=== PATIENT | male | born 1970 | race Caucasian/White ===

== ENCOUNTER 2020-06-24 11:55 | Emergency (ER) | payer SELFPAY ==
[~2020-06-24] VITALS: Ht 177.8 cm; Wt 81.6 kg
[~2020-06-24 11:55] MED LIST: AMBIEN5 MG PO; AUGMENTIN 875 M1 TAB PO; BACTROBAN OINT22 GM PO; CLARITIN10 MG PO; HYDROCODONE BIT1 T11 PO; KEFLEX500 MG PO; LOTRISONE 0.05%1 CRE TP; MEDROL DOSEPAK4 MG PO; NKHM; NORCO 325 MG-51 TAB PO; PHENERGAN25 M1 PO; PREDNICOT20 MG PO; PREDNISONE10 MG PO; PROTONIX40 MG PO; THYROID; TOBRADEX 0.1%-0.5 ML OPH; VICODIN ES 7501 TAB PO
[2020-06-24 12:55] LABS: BASO % 0.7 % (0.0-1.0); EOS # 0.2 10*3/uL (0.0-0.4); HEMATOCRIT 43.9 % (42.0-52.0); LYMPH # 1.6 10*3/uL (1.3-4.4); LYMPH % 28.7 % (27.0-41.0); MEAN CORPUSCULAR HGB 31.2 pg (27.0-31.0); MEAN CORPUSCULAR HGB CONC 33.9 g/dl (33.0-37.0); MEAN PLATELET VOLUME 10.6 fl (9.6-12.3); MONO # 0.6 10*3/uL (0.1-1.0); MONO % 10.8 % (3.0-9.0); NEUT % 55.4 % (47.0-73.0); PLATELET COUNT AUTOMATED 198 10*3/uL (130-400); RED BLOOD COUNT 4.77 10*6/uL (4.50-5.90); RED CELL DISTRI WIDTH 11.6 % (0-14.5); WHITE BLOOD COUNT 5.5 10*3/uL (4.8-10.8)
[2020-06-24 13:12] LABS: ALBUMIN 3.7 gm/dl (3.1-4.5); ALKALINE PHOSPHATASE 67 U/L (45-117); BUN 15 mg/dl (7-24); CHLORIDE 108 mmol/L (98-107); CREATININE 1.01 mg/dL (0.70-1.30); POTASSIUM 3.9 mmol/L (3.5-5.1); SGOT/AST 24 IU/L (3-35); SGPT/ALT 43 U/L (12-78); SODIUM 140 mmol/L (136-145); TOTAL PROTEIN 7.6 gm/dL (6.4-8.2)
[2020-06-24 13:35] LABS: BILIRUBIN NEGATIVE (NEGATIVE); BLOOD NEGATIVE (NEGATIVE); CLARITY CLEAR (CLEAR); COLOR YELLOW (YELLOW); GLUCOSE NEGATIVE (NEGATIVE); KETONE NEGATIVE (NEGATIVE); SPECIFIC GRAVITY 1.025 (1.005-1.030)
[2020-06-24 13:36] LABS: LEUKO ESTERASE NEGATIVE (NEGATIVE); NITRITE NEGATIVE (NEGATIVE); UROBILINOGEN 0.2 E.U./dl (0.2-1.0)
[2020-06-24 13:39] LABS: BACTERIA TRACE; MUCOUS TRACE; WBC 0-2 wbc/hpf (0-5)
== END 2020-06-24 15:41 | disposition home or self-care (01) ==
LOC: ED 11:55
PROVIDERS: Internal Medicine
DX: R10.31 Right lower quadrant pain (principal); R10.32 Left lower quadrant pain; E03.9 Hypothyroidism, unspecified; Z90.49 Acquired absence of other specified parts of digestive tract

== ENCOUNTER 2021-03-17 06:16 | Emergency (ER) | payer SELFPAY ==
[~2021-03-17] VITALS: Ht 177.8 cm; Wt 81.6 kg
[2021-03-17 07:24] LABS: BASO % 0.3 % (0.0-1.0); EOS # 0.1 10*3/uL (0.0-0.4); EOS % 1.4 % (1.0-4.0); HEMATOCRIT 40.6 % (42.0-52.0); LYMPH # 1.7 10*3/uL (1.3-4.4); LYMPH % 18.3 % (27.0-41.0); MEAN CELL VOLUME 92.5 fl (80.0-94.0); MEAN CORPUSCULAR HGB 31.4 pg (27.0-31.0); MEAN PLATELET VOLUME 10.7 fl (9.6-12.3); MONO # 1.1 10*3/uL (0.1-1.0); NEUT # 6.1 10*3/uL (2.3-7.9); NEUT % 67.8 % (47.0-73.0); PLATELET COUNT AUTOMATED 184 10*3/uL (130-400); RED BLOOD COUNT 4.39 10*6/uL (4.50-5.90); RED CELL DISTRI WIDTH 11.5 % (0-14.5)
[2021-03-17 07:40] LABS: ALBUMIN 3.4 gm/dl (3.1-4.5); ALKALINE PHOSPHATASE 65 U/L (45-117); BUN 18 mg/dl (7-24); CHLORIDE 108 mmol/L (98-107); CREATININE 1.01 mg/dL (0.70-1.30); POTASSIUM 3.6 mmol/L (3.5-5.1); SGOT/AST 15 IU/L (3-35); SGPT/ALT 34 U/L (12-78); SODIUM 139 mmol/L (136-145); TOTAL PROTEIN 7.4 gm/dL (6.4-8.2)
[2021-03-17 08:04] LABS: BILIRUBIN Negative (Negative); BLOOD Negative (Negative); CLARITY Clear (Clear); COLOR Yellow (Yellow); GLUCOSE Negative (Negative); KETONE Negative (Negative); LEUKO ESTERASE Negative (Negative); NITRITE Negative (Negative); PH 5.5 (4.5-8.0); SPECIFIC GRAVITY 1.015 (1.001-1.030); UROBILINOGEN 0.2 E.U./dl (0.0-1.0)
[2021-03-17 08:11] LABS: EPITHELIAL CELLS 0-2
[2021-03-17 08:12] LABS: MUCOUS TRACE
[2021-03-17] MEDS ORDERED: Motrin,Rufen800 MG PO (08:23)
[2021-03-17] MEDS ORDERED: CIPRO500 MG PO (08:23)
[2021-03-17] MEDS ORDERED: FLAGYL500 MG PO (08:23)
== END 2021-03-17 09:00 | disposition home or self-care (01) ==
LOC: ED 06:16
PROVIDERS: Emergency Medicine
DX: K57.32 Diverticulitis of large intestine without perforation or abscess without bleeding (principal); R10.32 Left lower quadrant pain

== ENCOUNTER 2021-03-19 20:09 | Emergency (ER) | payer SELFPAY ==
[~2021-03-19 20:09] MED LIST changes: +CIPRO500 MG PO; +FLAGYL500 MG PO; +Motrin,Rufen800 MG PO
== END 2021-03-19 22:00 | disposition left against medical advice (07) ==
LOC: ED 20:09
DX: R10.9 Unspecified abdominal pain (principal); Z53.21 Procedure and treatment not carried out due to patient leaving prior to being seen by health care provider

== ENCOUNTER 2021-07-16 11:05 | Emergency (ER) | payer SELFPAY ==
[~2021-07-16] VITALS: Wt 81.6 kg
[2021-07-16] MEDS ORDERED: ZITHROMAX250 MG PO (13:44)
[2021-07-16] MEDS ORDERED: PREDNISONE20 M1 PO (13:44)
[2021-07-16] MEDS ORDERED: PROVENTIL HFA6.7 GM INH (13:44)
== END 2021-07-16 14:22 | disposition home or self-care (01) ==
LOC: ED 11:05
DX: J18.9 Pneumonia, unspecified organism (principal); Z20.822 Contact with and (suspected) exposure to COVID-19

== ENCOUNTER 2021-07-23 00:42 | Emergency (ER) | payer SELFPAY ==
[~2021-07-23] VITALS: Ht 177.8 cm; Wt 81.6 kg
[~2021-07-23 00:42] MED LIST changes: +PREDNISONE20 M1 PO; +PROVENTIL HFA6.7 GM INH; +ZITHROMAX250 MG PO
[2021-07-23 01:54] LABS: BASO % 0.3 % (0.0-1.0); EOS # 0.1 10*3/uL (0.0-0.4); HEMATOCRIT 45.5 % (42.0-52.0); LYMPH # 2.4 10*3/uL (1.3-4.4); LYMPH % 22.6 % (27.0-41.0); MEAN CELL VOLUME 92.7 fl (80.0-94.0); MEAN CORPUSCULAR HGB 31.8 pg (27.0-31.0); MEAN CORPUSCULAR HGB CONC 34.3 g/dl (33.0-37.0); MEAN PLATELET VOLUME 10.3 fl (9.6-12.3); MONO # 0.8 10*3/uL (0.1-1.0); MONO % 7.8 % (3.0-9.0); NEUT # 7.1 10*3/uL (2.3-7.9); NEUT % 67.6 % (47.0-73.0); PLATELET COUNT AUTOMATED 309 10*3/uL (130-400); RED BLOOD COUNT 4.91 10*6/uL (4.50-5.90); RED CELL DISTRI WIDTH 11.9 % (0-14.5); WHITE BLOOD COUNT 10.5 10*3/uL (4.8-10.8)
[2021-07-23] MEDS ORDERED: SEPTDS PO (02:09)
== END 2021-07-23 02:58 | disposition home or self-care (01) ==
LOC: ED 00:42
PROVIDERS: Internal Medicine
DX: L03.116 Cellulitis of left lower limb (principal); Z79.2 Long term (current) use of antibiotics

== ENCOUNTER 2022-02-20 07:26 | Emergency (ER) | payer SELFPAY ==
[~2022-02-20] VITALS: Ht 177.8 cm; Wt 81.6 kg
[~2022-02-20 07:26] MED LIST changes: +SEPTDS PO
[2022-02-20 08:09] LABS: BASO # 0.1 10*3/uL (0.0-0.1); EOS # 0.3 10*3/uL (0.0-0.4); EOS % 4.3 % (1.0-4.0); HEMATOCRIT 44.3 % (42.0-52.0); LYMPH % 32.4 % (27.0-41.0); MEAN CELL VOLUME 92.5 fl (80.0-94.0); MEAN CORPUSCULAR HGB 31.7 pg (27.0-31.0); MEAN CORPUSCULAR HGB CONC 34.3 g/dl (33.0-37.0); MEAN PLATELET VOLUME 10.2 fl (9.6-12.3); MONO # 0.8 10*3/uL (0.1-1.0); MONO % 13.2 % (3.0-9.0); NEUT % 48.9 % (47.0-73.0); PLATELET COUNT AUTOMATED 198 10*3/uL (130-400); RED BLOOD COUNT 4.79 10*6/uL (4.50-5.90); RED CELL DISTRI WIDTH 11.7 % (0-14.5); WHITE BLOOD COUNT 6.1 10*3/uL (4.8-10.8)
[2022-02-20 08:30] LABS: BUN 15 mg/dl (7-24); CHLORIDE 109 mmol/L (98-107); CREATININE 0.81 mg/dL (0.70-1.30); POTASSIUM 4.4 mmol/L (3.5-5.1); SGOT/AST 24 IU/L (3-35); SGPT/ALT 29 U/L (12-78); SODIUM 140 mmol/L (136-145); TOTAL PROTEIN 7.2 gm/dL (6.4-8.2)
[2022-02-20 08:40] LABS: ALKALINE PHOSPHATASE 57 U/L (45-117)
[2022-02-20] MEDS ORDERED: ZITHROMAX250 MG PO (12:57)
== END 2022-02-20 13:28 | disposition home or self-care (01) ==
LOC: ED 07:26
PROVIDERS: Emergency Medicine
DX: S46.811A Strain of other muscles, fascia and tendons at shoulder and upper arm level, right arm, initial encounter (principal); J18.9 Pneumonia, unspecified organism; F17.200 Nicotine dependence, unspecified, uncomplicated; Z90.49 Acquired absence of other specified parts of digestive tract; X58.XXXA Exposure to other specified factors, initial encounter; Y93.89 Activity, other specified; Y92.89 Other specified places as the place of occurrence of the external cause; Y99.8 Other external cause status

== ENCOUNTER → 2022-09-24 | Outpatient (CLI) | payer SELFPAY ==
[2022-09-24 10:08] LABS: BASO % 0.5 % (0.0-1.0); EOS # 0.3 10*3/uL (0.0-0.4); EOS % 4.1 % (1.0-4.0); HEMATOCRIT 46.4 % (42.0-52.0); LYMPH % 31.4 % (27.0-41.0); MEAN CELL VOLUME 95.7 fl (80.0-94.0); MEAN CORPUSCULAR HGB 32.6 pg (27.0-31.0); MEAN CORPUSCULAR HGB CONC 34.1 g/dl (33.0-37.0); MEAN PLATELET VOLUME 11.2 fl (9.6-12.3); MONO # 0.7 10*3/uL (0.1-1.0); MONO % 10.4 % (3.0-9.0); NEUT # 3.4 10*3/uL (2.3-7.9); NEUT % 53.4 % (47.0-73.0); PLATELET COUNT AUTOMATED 198 10*3/uL (130-400); RED BLOOD COUNT 4.85 10*6/uL (4.50-5.90); RED CELL DISTRI WIDTH 11.9 % (0-14.5); WHITE BLOOD COUNT 6.3 10*3/uL (4.8-10.8)
[2022-09-24 10:26] LABS: CHLORIDE 110 mmol/L (98-107); POTASSIUM 4.1 mmol/L (3.5-5.1); SODIUM 142 mmol/L (136-145)
[2022-09-24 11:14] LABS: ALKALINE PHOSPHATASE 65 U/L (45-117); BUN 15 mg/dl (7-24); CHOLESTEROL 190 mg/dL (<200); CREATININE 1.02 mg/dL (0.70-1.30); LDL CHOLESTEROL 118 mg/dL (9-159); SGOT/AST 20 IU/L (3-35); SGPT/ALT 27 U/L (12-78); TOTAL PROTEIN 7.8 gm/dL (6.4-8.2); TRIGLYCERIDES 172 mg/dl (<150)
== END | disposition home or self-care (01) ==
LOC: RESCLI 03:58
PROVIDERS: Student in an Organized Health Care Education/Training Program; ATTEND Internal Medicine
DX: Z23 Encounter for immunization (principal); R91.1 Solitary pulmonary nodule; R91.8 Other nonspecific abnormal finding of lung field; E55.9 Vitamin D deficiency, unspecified; F17.200 Nicotine dependence, unspecified, uncomplicated; Z79.899 Other long term (current) drug therapy

== ENCOUNTER 2023-07-22 16:54 | Emergency (ER) | payer OTHER ==
[~2023-07-22] VITALS: Ht 177.8 cm; Wt 79.4 kg
[2023-07-22 17:22] LABS: BASO % 0.6 % (0.0-1.0); EOS # 0.2 10*3/uL (0.0-0.4); EOS % 2.2 % (1.0-4.0); HEMATOCRIT 43.9 % (42.0-52.0); LYMPH # 2.1 10*3/uL (1.3-4.4); LYMPH % 28.6 % (27.0-41.0); MEAN CELL VOLUME 92.8 fl (80.0-94.0); MEAN CORPUSCULAR HGB 31.5 pg (27.0-31.0); MEAN CORPUSCULAR HGB CONC 33.9 g/dl (33.0-37.0); MEAN PLATELET VOLUME 10.1 fl (9.6-12.3); MONO # 0.8 10*3/uL (0.1-1.0); MONO % 10.3 % (3.0-9.0); NEUT # 4.2 10*3/uL (2.3-7.9); NEUT % 57.9 % (47.0-73.0); PLATELET COUNT AUTOMATED 238 10*3/uL (130-400); RED BLOOD COUNT 4.73 10*6/uL (4.50-5.90); RED CELL DISTRI WIDTH 11.6 % (0-14.5); WHITE BLOOD COUNT 7.3 10*3/uL (4.8-10.8)
[2023-07-22 17:47] LABS: ALKALINE PHOSPHATASE 80 U/L (46-116); BUN 13 mg/dl (9-23); CHLORIDE 110 mmol/L (98-107); POTASSIUM 3.7 mmol/L (3.4-5.1); SGPT/ALT 18 U/L (10-49); TOTAL PROTEIN 7.6 gm/dL (6.0-8.0); URIC ACID 7.2 mg/dL (3.7-9.2)
[2023-07-22] MEDS ORDERED: PREDNISONE50 MG PO (18:56)
== END 2023-07-22 19:55 | disposition home or self-care (01) ==
LOC: ED 16:54
PROVIDERS: Nurse Practitioner Family
DX: M10.9 Gout, unspecified (principal); M19.032 Primary osteoarthritis, left wrist; E03.9 Hypothyroidism, unspecified; Z90.49 Acquired absence of other specified parts of digestive tract

== ENCOUNTER 2023-08-24 09:26 | Emergency (ER) | payer OTHER ==
[~2023-08-24] VITALS: Ht 172.7 cm; Wt 81.6 kg
[~2023-08-24 09:26] MED LIST changes: +PREDNISONE50 MG PO
[2023-08-24] MEDS ORDERED: TRAMADOL HCL50 MG PO (09:47)
[2023-08-24] MEDS ORDERED: PREDNISONE20 M1 PO (09:47)
== END 2023-08-24 09:51 | disposition home or self-care (01) ==
LOC: ED 09:26
DX: M25.532 Pain in left wrist (principal); G56.02 Carpal tunnel syndrome, left upper limb; I10 Essential (primary) hypertension; E03.9 Hypothyroidism, unspecified; Z90.49 Acquired absence of other specified parts of digestive tract; F17.290 Nicotine dependence, other tobacco product, uncomplicated